=== PATIENT | male | born 1980 | race Two or more races ===

== ENCOUNTER 2024-09-23 15:18 | Emergency (ER) | payer SELFPAY ==
--- NOTE | 2024-09-23 16:44 | XR_ITS ---
PROCEDURE INFORMATION: Exam: XR Right Hand Exam date and time: 09/23/2024 4:49 PM Age: 44 years old Clinical indication: Injury or trauma; Other: Smashed finger; Blunt trauma (contusions or hematomas); Right; Index finger; Additional info: Pressure injury, right finger TECHNIQUE: Imaging protocol: Radiologic exam of the right hand. Views: 1 or 2 views. COMPARISON: No relevant prior studies available. FINDINGS: Bones/joints: No bony fractures are noted. Soft tissues: There is increased density within the soft tissues of the 2nd digit beginning at the midpoint of the proximal phalanx and extending to the distal phalanx. The etiology of this is unclear. IMPRESSION: 1. Increased density within the soft tissues of the 2nd digit beginning at the midpoint of the proximal phalanx and extending to the distal phalanx. The etiology of this is unclear, correlate with clinical history. Possible heterotopic ossification. Question foreign body or packing. 2. No bony fractures are noted.
--- NOTE | 2024-09-23 16:51 | ED_ITS ---
Discharge Plan Referrals Follow up/Referrals: Provider,Referral, [Primary Care Provider, Medical] - See instructions Print Language Print Language: Turkmen Discharge ED Provider: Jacob Marie General Adult HPI General Stated complaint: R index finger swollen Time Seen by Provider: 09/23/24 16:33 History of Present Illness HPI narrative: Rodríguez Olea is a 44y male with no known medical history who presents to the emergency department for complaints of an injury to his right index finger. Patient Turkmen-speaking and an manager managed backup services was used during the encounter [facility] Disclaimer: The information contained in this section may have been updated after the pat ient was seen, as this information can be updated by other users. Social History Have you lived/traveled outside [place] in past 30 days?: No Contact w/someone who lives/traveled outside US past 30 days?: No Exposure to someone with infectious disease in past 14 days?: No Do you have a fever (greater than 100.4 F or 38 C)?: No Have you tested positive for COVID-19?: No Exposed to someone with COVID-19 in past 14 days?: No Do you have a sore throat?: No Do you have a cough?: No Do you have any weakness?: No Do you have any diarrhea?: No Are you experiencing any unusual bleeding?: No Do you have any muscle aches/pain?: No Do you have any abdominal pain?: No Are you experiencing loss of taste or smell?: No Medical Decision Making Medical Records Screening: Per USPSTF and CDC recommendations, given the prevalence of disease in our region, it is our hospital?s policy to screen for HIV and viral Hepatitis for all patients aged 18 and over and those with ongoing risk factors. Orders (Tests/Meds): ED MEDICATIONS Generic Name Dose Route Start Last Admin Trade Name Freq PRN Reason Stop Dose Admin Acetaminophen 1,000 mg 09/23/24 16:49 Acetaminophen 500mg Tab PO 09/23/24 16:50 ONCE ONE Oxycodone HCl 5 mg 09/23/24 16:50 Oxycodone 5mg Immediate Release Tablet PO 09/23/24 16:51 ONCE ONE ORDERS Category Date Time Status Hand XR right 2 views [XR hand RT 2V] Stat Exams 09/23/24 16:44 Ordered
[2024-09-23 17:16] VITALS: BP 132/91; PULSE 78; RESP 16; TEMP 36.8; O2SAT 97; BMI 31.6
--- NOTE | 2024-09-23 17:21 | PC.NURSE ---
Called [facility] per WESLEY Wick to speak with Hand for a consult on this patient. connected with Dr Cisneros who was gonna start the call and go from there.
--- NOTE | 2024-09-23 17:23 | ED_ITS ---
<Statement entered by Jacob Marie MD - 09/23/24 17:50> I was consulted by the SHIRA, and we discussed the complexity of the problems being addressed. I approve the treatment and management plan for this patient's care in the emergency department, thus performing a substantive portion of the medical decision making. I personally evaluated the patient. Patient's right second digit has circumferential swelling from the base of the finger extending distally. There is a laceration over the palmar aspect at the middle phalanx without bleeding. The tip of his finger appears dusky. There are no dopplerable pulses. He has no range of motion with flexion of that finger. He has a strong radial pulse. X-ray was obtained and was interpreted by me personally. There is diffuse swelling to the right second digit with opacities within the palmar aspect of the finger extending from the distal phalanx all the way to the base of the finger concerning for high-pressure injury. Given this, SHIRA discussed patient's case with the hand surgery team at the [facility] who agreed to accept the patient to the emergency department. Jacob Marie MD Discharge Plan Disposition Chief Complaint: Extremity Injury, Upper Referrals Follow up/Referrals: Provider,Referral, [Primary Care Provider, Medical] - See instructions Print Language Print Language: Upper Sorbian Discharge ED Provider: Jacob Marie General Adult HPI General Chief complaint: Extremity Injury, Upper Stated complaint: R index finger swollen Time Seen by Provider: 09/23/24 16:33 Mode of Arrival: Ambulatory Source of Information: Patient Description of Symptoms (Recalled from ER Triage Doc. by RN): Patient states that he was using a high pressure paint spray can and some went into his right index finger. Right index finger now red and swollen. Happened approx 1 hour prior to arrival. History of Present Illness HPI narrative: patient is a 44-year-old male with no significant PMHxwho presents to the ED for a right index finger injury that occurred 2 hours prior to arrival. 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 Patient states that 2 hours prior to arrival he was using a high-pressure paint gun when it exploded and entered into his right index finger on the palmar side. Related Data Allergies Allergy/AdvReac Type Severity Reaction Status Date / Time No Known Allergies Allergy Verified 09/23/24 17:22 PFSH PFSH Disclaimer: The information contained in this section may have been updated after the patient was seen, as this information can be updated by other users. Social History Smoking Status: Never smoker alcohol intake: never current occupational status: employed Travel in the last 8 weeks?: None ROS Obtained: Yes Systems reviewed as appropriate & no additional complaints except as documented Physical Exam General General appearance: alert Eye Eye exam: Present PERRL Neck Neck exam: Present full ROM Respiratory Respiratory exam: Present normal lung sounds bilaterally Cardiovascular Cardiovascular exam: Present regular rate Abdominal Exam Abdominal exam: Present soft Extremities Exam Extremities exam: Present other (Right index finger, puncture wound on the palmar side, proximal with white paint coming out of the puncture wound. Patient has no ROM of right index finger, no sensation, edema and tenderness noted. No distal pulses) Neurological Exam Neurological exam: Present alert Skin Skin exam: Present dry Medical Decision Making Medical Records Screening: Per USPSTF and CDC recommendations, given the prevalence of disease in our region, it is our hospital?s policy to screen for HIV and viral Hepatitis for all patients aged 18 and over and those with ongoing risk factors. Wilberto Inquiry Pt receiving controlled substance: No Vital Signs: 09/23/24 17:16 Temperature 98.2 F Temperature Source Oral Pulse Rate [Left Brachial] 78 Respiratory Rate 16 Blood Pressure [Left Arm] 132/91 H Blood Pressure Mean [Left Arm] 104 Blood Pressure Source [Left Arm] Automatic Cuff Blood Pressure Position [Left Arm] Sitting 02 Sat by Pulse Oximetry 97 Oxygen Delivery Method Room Air Orders (Tests/Meds): ED MEDICATIONS Discontinued Medications Generic Name Dose Route Start Last Admin Trade Name Pee PRN Reason Stop Dose Admin Acetaminophen 1,000 mg 09/23/24 16:49 Acetaminophen 500mg Tab PO 09/23/24 16:50 ONCE ONE Oxycodone HCl 5 mg 09/23/24 16:50 Oxycodone 5mg Immediate Release Tablet PO 09/23/24 16:51 ONCE ONE ORDERS Category Date Time Status Hand XR right 2 views [XR hand RT 2V] Stat Exams 09/23/24 16:44 Taken Medical Decision Narrative: In summary, patient is a 44-year-old male with no significant PMHx who presents to the ED for a right index finger injury that occurred 2 hours prior to arrival. 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 Patient states that 2 hours prior to arrival he was using a high- pressure paint gun when it exploded and entered into his right index finger on the palmar side. Patient paints houses for living. Patient has no range of motion in finger. It is swollen, tender, no sensation. Attempted Doppler, patient has no distal phalanx pulses. I contacted to transfer for hand, patient is accepted as a ER to ER transfer surgery to be evaluated by hand. Patient is agreeable to transfer. He will be going by POV. Critical Care Critical Care Time Critical Care Time: No
--- NOTE | 2024-09-23 17:30 | PC.NURSE ---
Dr Cisneros was gonna call back. when images were received for the second time.
--- NOTE | 2024-09-23 17:34 | PC.NURSE ---
called back and is speaking with WESLEY Wick at this time
[2024-09-23] MEDS: ACETAMINOPHEN 500MG TAB 1000 MG PO (18:02)
[2024-09-23] MEDS: OXYCODONE 5MG IMMEDIATE RELEASE TABLET 5 MG PO (18:02)
[2024-09-23 18:05] VITALS: BP 135/88; PULSE 75; RESP 16; TEMP 36.8; O2SAT 98
== END 2024-09-23 18:11 | disposition short-term general hospital (02) ==
PROVIDERS: Emergency Provider Student in an Organized Health Care Education/Training Program
DX: S69.81XA Other specified injuries of right wrist, hand and finger(s), initial encounter (principal); T70.4XXA Effects of high-pressure fluids, initial encounter; R20.8 Other disturbances of skin sensation; W36.1XXA Explosion and rupture of aerosol can, initial encounter
CPT/HCPCS: 73120; 99282; 99285